=== PATIENT | male | born 1955 | race Caucasian/White ===

== ENCOUNTER → 2016-09-06 | Outpatient (REF) ==
--- NOTE | 2016-09-06 13:12 | REP ---
Partial lumbar spine series: Three views. History: Degenerative disc disease. No comparison studies. Findings: There is straightening of the normal lumbar lordosis. No other malalignment is seen. Vertebral body heights are preserved. There is degenerative disc narrowing with spur formation and L4-5, L5-S1 and to a lesser extent at L1-2 and L2-3. Pedicles and posterior elements appear intact. There is no evidence of spondylolysis or spondylolisthesis. Sacrum and SI joints are intact. There is some facet hypertrophy suspected at L4-5 bilaterally. Psoas margins are symmetric. Impression: Degenerative spondylosis changes. Signed by Gus Tidwell MD 09/06/2016 02:04 P
== END ==
LOC: M SMT 10:18
PROVIDERS: ATTEND Internal Medicine
DX: Z02.71 Encounter for disability determination (principal)